=== PATIENT | male | born 1985 | race Caucasian/White ===

== ENCOUNTER 2018-09-26 15:46 | Emergency (ER) | payer SELFPAY ==
[~2018-09-26] VITALS: Ht 175.3 cm; Wt 64.0 kg
[2018-09-26] MEDS ORDERED: SODIUM CHLORIDE 0.9% 1,000 ML IV ONE (17:15)
[2018-09-26] MEDS ORDERED: LORAZEPAM 2MG/ML CPJ IV NR (17:15)
[2018-09-26 17:51] LABS: BASOPHILS % 0.3 % (0.0-2.0); EOSINOPHILS % 0.2 % (0.0-5.0); HEMATOCRIT. 36.9 % (42.0-52.0); HEMOGLOBIN. 12.5 g/dL (14.0-18.0); LYMPHOCYTES % 8.7 % (20.0-50.0); MEAN CORPUSCULAR HEMOGLOBIN 32.4 pg (28.0-32.0); MEAN CORPUSCULAR VOLUME 95.8 fL (80.0-94.0); MEAN PLATELET VOLUME 6.6 fl (7.4-10.4); NEUTROPHILS % 84.8 % (40.0-76.0); PLATELET 112 x1000/uL (130-400); RED BLOOD CELL COUNT 3.85 mill/uL (4.7-6.1); RED CELL DISTRIBUTION WIDTH 15.9 % (11.6-14.6)
[2018-09-26 17:56] LABS: CHLORIDE 103 mEq/L (98-107)
[2018-09-26] MEDS ORDERED: OXYMETAZOLINE HCL NASAL SPRAY 15ML BOTHNSTRLS SCH (18:45)
[2018-09-26] MEDS ORDERED: TRANEXAMIC ACID 1,000 MG/10 ML IV ONE (20:00)
[2018-09-26] MEDS ORDERED: SILVER NITRATE APPLICATOR STICK TOP ONE (21:00)
[2018-09-26 22:45] VITALS: BP 140/91
== END 2018-09-26 22:53 | disposition home or self-care (01) ==
LOC: ER 15:46
DX: S02.31XA Fracture of orbital floor, right side, initial encounter for closed fracture (principal); S02.40CA Maxillary fracture, right side, initial encounter for closed fracture; F10.239 Alcohol dependence with withdrawal, unspecified; R04.0 Epistaxis; Y90.9 Presence of alcohol in blood, level not specified; Y04.0XXA Assault by unarmed brawl or fight, initial encounter; Y93.89 Activity, other specified; Y92.488 Other paved roadways as the place of occurrence of the external cause
CPT/HCPCS: 36415; 70450; 70486; 71045; 80048; 85025; 93005; 96374; 96375; 99284; A4217; J2060; Z7610